=== PATIENT | female | born 1970 | race Caucasian/White ===

== ENCOUNTER → 2016-07-11 | Outpatient (CLI) | payer BC ==
[~2016-07-11] MED LIST: AVIANE PO; IBUP-30 PO; OXYC-12 PO
--- NOTE | 2016-07-11 19:15 | Diagnostic Imaging Report ---
EXAMINATION: Digital mammogram bilateral screening. INDICATION: Screening. COMPARISON: This study was compared to the prior exam of 06/01/2015. At this time, there are no current complaints. The current study was also evaluated with a Computer Aided Detection (CAD) system. FINDINGS: The fibroglandular tissue in both breasts is heterogeneously dense. This does limit the sensitivity of this exam. Overall, there does not appear to have been any significant change when compared to the prior study. No primary or secondary sign of malignancy is noted. IMPRESSION: There is no radiographic evidence for malignancy. ACR BI-RADS Category 1: Negative. Result letter will be mailed to the patient. Note: At least 10% of breast cancer is not imaged by mammography. Dictated by: Dictated on workstation # [id number]
== END ==
LOC: RAD 14:29
PROVIDERS: ATTEND Family Medicine
DX: Z12.31 Encounter for screening mammogram for malignant neoplasm of breast (principal)
CPT/HCPCS: 77067

== ENCOUNTER → 2018-10-15 | Outpatient (CLI) | payer BC ==
--- NOTE | 2018-10-15 18:00 | Diagnostic Imaging Report ---
INDICATION: Routine screening. COMPARISON: Prior mammograms from 07/11/2016 and 06/01/2015. EXAMINATION: 2D and 3D bilateral screening mammography was performed with CAD. The current study was also evaluated with a Computer Aided Detection (CAD) system. FINDINGS: Scattered fibroglandular densities are identified, bilaterally. Intraparenchymal lymph node of outer right breast appears stable. There are benign calcifications in the right breast. No new mass or malignant appearing microcalcifications are seen. Axillae are unremarkable. IMPRESSION: No mammographic features suspicious for malignancy are identified. ACR BI-RADS Category 2: Benign findings. Result letter will be mailed to the patient. Note: At least 10% of breast cancer is not imaged by mammography. Dictated by: Dictated on workstation # [id number]
== END ==
LOC: RAD 14:45
PROVIDERS: ATTEND Family Medicine
DX: Z12.31 Encounter for screening mammogram for malignant neoplasm of breast (principal)
CPT/HCPCS: 77067

== ENCOUNTER → 2020-02-17 | Outpatient (CLI) | payer BC ==
[~2020-02-17] VITALS: Ht 175 cm; Wt 79.0 kg
[~2020-02-17] MED LIST changes: +REGADENOSON 0.4 MG/5 ML SYR (LEXISCAN) IV ONE
[2020-02-17] MEDS: CATHETER FLUSH 10 ML SYR IV PRN ×3 (10:37→12:10)
[2020-02-17 11:59] VITALS: BP 146/99
--- NOTE | 2020-02-17 16:06 | Cardiology Stress Test Report ---
Stress Test Report Date of Procedure/Referring: Date of Procedure: Feb 17, 2020 PCP Chi Melendrez MD Admitting Physician Fatou Alberto MD Indications: Chest pain Baseline Heart Rate: 85 Baseline Blood Pressure: Blood Pressure Systolic: 146 Blood Pressure Diastolic: 99 Baseline Vitals Vital Signs Date Time Temp Pulse Resp B/P (MAP) Pulse Ox O2 Delivery O2 Flow Rate FiO2 02/17/20 11:59 88 16 146/99 (115) 98 Room Air Baseline EKG: Baseline EKG: normal sinus rhythm Summary After explaining the procedure to the patient, she signed a consent and then brought to the stress nuclear laboratory. Patient received 0.4 mg Lexiscan for stress test, ECG, heart rate and blood pressure were monitored continuously. Resting and stress dose of radio tracer were injected, imaging was acquired and reviewed in short axis, horizontal long axis and vertical long axis views. TID: 1.05 SSS: 2 SDS: 2 EF: 75 1. Patient tolerated Lexiscan well 2. Good radiotracer uptake with no significant ischemia or infarction on SPECT images 3. Normal left ventricular size, EF 75 percent CHI MELENDREZ MD Feb 17, 2020 16:06
== END ==
LOC: CARD 10:00
PROVIDERS: ATTEND Internal Medicine Cardiovascular Disease
DX: I34.0 Nonrheumatic mitral (valve) insufficiency (principal); I11.9 Hypertensive heart disease without heart failure
CPT/HCPCS: 78452; 93017; 93306; A9502

== ENCOUNTER → 2021-07-18 | Outpatient (CLI) | payer BC ==
[~2021-07-18] MED LIST changes: +ALBU1.25 INH; +FLUT1AER IH; +LORA-877 PO; +MONT10TA21 PO; +NAPR-1070 PO; +NEBI2.5T5 PO; -REGADENOSON 0.4 MG/5 ML SYR (LEXISCAN) IV ONE
--- NOTE | 2021-07-18 14:15 | Diagnostic Imaging Report ---
INDICATION: Right distal ureteral stone. Time of Exam: 1:13 PM Bowel gas pattern is unremarkable. No definite radiopaque calculi are seen overlying the renal shadows. There are 2 separate calcific densities in the right hemipelvis which are indeterminate. This could represent phleboliths. The more cephalad calcification in the pelvis could potentially be distal ureteric. There is also calcific density projected between the right L1 and L2 transverse processes measuring 10 mm x 5 mm. This is indeterminate. No other suspicious foci are seen. Surgical clips in the gallbladder fossa. IMPRESSION: There are calcific densities in the right hemipelvis as well as located between the right L1 and L2 transverse processes. These could potentially be urinary tract in origin. CT of the urinary tracts would be useful for further evaluation if not already performed. Dictated by: Dictated on workstation # [id number]
== END ==
LOC: RAD 12:54
PROVIDERS: ATTEND Family Medicine
DX: N20.2 Calculus of kidney with calculus of ureter (principal)
CPT/HCPCS: 74018

== ENCOUNTER 2021-07-19 05:43 | Outpatient (CLI) | payer BC ==
[~2021-07-19] VITALS: Ht 175.3 cm; Wt 78.2 kg
[~2021-07-19 05:43] MED LIST changes: -ALBU1.25 INH; -FLUT1AER IH; -LORA-877 PO; -MONT10TA21 PO; -NAPR-1070 PO; -NEBI2.5T5 PO
[2021-07-20] MEDS ORDERED: FLUT1AER IH (15:06)
[2021-07-20] MEDS ORDERED: NAPR-1070 PO (15:06)
[2021-07-20] MEDS ORDERED: LORA-877 PO (15:06)
[2021-07-20] MEDS ORDERED: ALBU1.25 INH (15:06)
[2021-07-20] MEDS ORDERED: NEBI2.5T5 PO (15:06)
[2021-07-20] MEDS ORDERED: MONT10TA21 PO (15:06)
== END 2021-07-20 15:20 | disposition home or self-care (01) ==
LOC: PREOP 05:43
PROVIDERS: ATTEND Urology
DX: Z01.818 Encounter for other preprocedural examination (principal)

== ENCOUNTER 2021-07-25 05:55 | Day surgery (SDC) | payer BC ==
[2021-07-25] VITALS (10 sets, daily range): BP systolic 108–145; BP diastolic 61–89
[~2021-07-25] VITALS: Ht 175.3 cm; Wt 78.2 kg
[~2021-07-25 05:55] MED LIST changes: +ALBU1.25 INH; +FLUT1AER IH; +LORA-877 PO; +MONT10TA21 PO; +NAPR-1070 PO; +NEBI2.5T5 PO
[2021-07-25] MEDS ORDERED: LACTATED RINGERS 1,000 ML IV PRN (06:15)
[2021-07-25] MEDS ORDERED: cefTRIAXone 1 GM PRE-MIX 50 ML IV ONE (06:15)
[2021-07-25] MEDS ORDERED: ONDANSETRON 4 MG/2 ML (SDV) Z0FRAN ONE (06:51)
[2021-07-25] MEDS ORDERED: LIDOCAINE PF 2% 5 ML (XYLOCAINE) VIAL ONE (06:51)
[2021-07-25] MEDS ORDERED: proPOfol 200 MG/20 ML (DIPRIVAN) VIAL IV ONE (06:51)
[2021-07-25] MEDS ORDERED: MIDAZOLAM 2 MG/2 ML (VERSED) VIAL ONE (06:51)
[2021-07-25] MEDS ORDERED: fentaNYL INJ 100 MCG/2 ML AMP ONE (06:51)
--- NOTE | 2021-07-25 07:12 | Diagnostic Imaging Report ---
INDICATION: Post ESWL. COMPARISON: 07/18/2021. FINDINGS: No radiopaque calculi projecting over the renal shadows found. Chronic bony proliferations along the margins of the iliac bones chronic. Bowel gas pattern normal. Right pelvic calcifications unchanged. IMPRESSION: No interval change apparent. Dictated by: Dictated on workstation # [id number]
--- NOTE | 2021-07-25 07:44 | Progress Note-Pre Operative ---
Pre-Operative Progress Note H&P Reviewed The H&P was reviewed, patient examined and no changes noted. Date Seen by Provider: Jul 25, 2021 Time Seen by Provider: 07:44 Date H&P Reviewed: Jul 25, 2021 Time H&P Reviewed: 07:44 Pre-Operative Diagnosis: RT URETERAL STONE FARHANA HERMAN MD Jul 25, 2021 07:44
--- NOTE | 2021-07-25 08:45 | Progress Note-Post Operative ---
Post-Operative Progess Note Surgeon (s)/Operations Officer Afloat (s) Surgeon FARHANA HERMAN MD Operations Officer Afloat: NONE Pre-Operative Diagnosis RT URETERAL STONE Post-Operative Diagnosis SAME Procedure & Operative Findings Date of Procedure 07/25/21 Procedure Performed/Findings CYSTOSCOPY, RT URETEROSCOPY WITH STONE LITHOTRIPSY Anesthesia Type GENERAL Estimated Blood Loss Estimated blood loss (mL): NONE Specimens/Packing Specimens Removed NONE Packing: NONE FARHANA HERMAN MD Jul 25, 2021 08:45
--- NOTE | 2021-07-25 08:47 | Discharge Inst-Urology ---
Discharge Inst-Urology Reconcile Patient Problems Problems Reviewed?: Yes Final Diagnosis RT DISTAL URETERAL STONE Patient Instructions/Follow Up Plan/Assessment/Instructions Please make appointment to been seen in office in 2 weeks. Strain all urine and bring fragments to office visit No KUB's Increase oral fluids for 48 hours and then as needed. Diet and Activity as tolerated. If questions or concerns contact your physician Or seek help at emergency department. FARHANA HERMAN MD Jul 25, 2021 08:47
--- NOTE | 2021-07-25 08:49 | Anesthesia-General Post-Op ---
General Patient Condition Mental Status/LOC: Same as Preop Cardiovascular: Satisfactory Nausea/Vomiting: Absent Respiratory: Satisfactory Pain: Controlled Complications: Absent Post Op Complications Complications None Follow Up Care/Instructions Patient Instructions None needed. Anesthesia/Patient Condition Patient Condition Patient is doing well, no complaints, stable vital signs, no apparent adverse anesthesia problems. No complications reported per nursing. RITESH DAVIS CRNA Jul 25, 2021 08:49
[2021-07-25] MEDS ORDERED: fentaNYL INJ 100 MCG/2 ML AMP IVP ONE (09:00)
[2021-07-25] MEDS ORDERED: ONDANSETRON 4 MG/2 ML (SDV) Z0FRAN IVP PRN (09:00)
[2021-07-25] MEDS ORDERED: NITR-65 PO (09:23)
[2021-07-25] MEDS ORDERED: TMSL.4C PO (09:23)
[2021-07-25] MEDS ORDERED: KETO10TA PO (09:23)
[2021-07-25] MEDS ORDERED: PHEN-640 PO (09:23)
--- NOTE | 2021-07-25 10:49 | OPERATIVE REPORT ---
DATE OF SERVICE: 07/25/2021 PREOPERATIVE DIAGNOSIS: Right distal ureteral stone. POSTOPERATIVE DIAGNOSIS: Right distal ureteral stone. OPERATIONS PERFORMED: Cystoscopy, right ureteroscopy with stone lithotripsy. SURGEON: Pedrito Herman MD. ANESTHESIA: General. COMPLICATIONS: None. DESCRIPTION OF PROCEDURE: Under satisfactory general anesthesia and the patient in lithotomy position, genitalia were prepped and draped in the usual sterile fashion. A cystoscope was introduced in the bladder and the only abnormality was a protruding stone from the right ureteral orifice. I tried to grasp it with a grasping forceps, only obtained a piece, so I removed the cystoscope and introduced the ureteroscope, 6.9 Bengali semi-rigid, visualized the stone and started fragmenting it with the lithoclast. I chased it all up to the mid ureter and broke it up completely. There were no further stones more proximally and very small fragments distally that were easily flowing into the bladder. I removed the ureteroscope and reinserted the cystoscope to empty the bladder. The patient tolerated the procedure and anesthesia well and was sent to recovery room in a stable condition. PLAN: Work her up for stone prevention when she comes to the office in two weeks. Job ID: [id number] DocumentID: [id number] Dictated Date: 07/25/2021 08:49:[address] Date: 07/25/2021 10:48:22 Dictated By: PEDRITO HERMAN MD
== END 2021-07-25 10:45 | disposition home or self-care (01) ==
LOC: SDC 05:55
PROVIDERS: ATTEND Urology
DX: N20.1 Calculus of ureter (principal); J45.909 Unspecified asthma, uncomplicated; I10 Essential (primary) hypertension; Z79.899 Other long term (current) drug therapy
CPT/HCPCS: 74018; 76000; 84703; 87081

== ENCOUNTER 2021-08-16 09:00 | Outpatient (RCR) | payer BC ==
[~2021-08-16 09:00] MED LIST changes: +KETO10TA PO; +NITR-65 PO; +PHEN-640 PO; +TMSL.4C PO
== END 2021-09-05 | disposition home or self-care (01) ==
LOC: LAB 09:00
PROVIDERS: ATTEND Urology
DX: N20.0 Calculus of kidney (principal)
CPT/HCPCS: 36415; 82140; 82340; 82507; 82570; 83735; 83945; 83986; 84105; 84133; 84300; 84392; 84560; 88300

== ENCOUNTER 2021-12-06 05:32 | Outpatient (CLI) | payer BC ==
[~2021-12-06] VITALS: Ht 175.3 cm; Wt 78.5 kg
[2021-12-06] MEDS ORDERED: DICY20TA PO (09:17)
[2021-12-06] MEDS ORDERED: POTA99CA PO (09:17)
[2021-12-06] MEDS ORDERED: FEBU40TA3 PO (09:17)
[2021-12-06] MEDS ORDERED: IBUP-1773 PO (09:17)
== END 2021-12-06 11:51 | disposition home or self-care (01) ==
LOC: PREOP 05:32
PROVIDERS: ATTEND Internal Medicine
DX: Z01.818 Encounter for other preprocedural examination (principal)

== ENCOUNTER 2021-12-15 07:02 | Day surgery (SDC) | payer BC ==
--- NOTE | 2021-12-06 07:40 | HISTORY AND PHYSICAL ---
DATE OF SERVICE: COLONOSCOPY HISTORY AND PHYSICAL HISTORY OF PRESENT ILLNESS: The patient is a 51-year-old white female referred by Dr. Dorman for screening colonoscopy. She is deemed to be of higher than average risk due to family history of colon cancer in her father diagnosed at the age of 61. She also had a grandmother on her father's side who of colon cancer in her 60s. She last underwent colonoscopy 6.5 years ago, at which time there was no evidence for neoplasia. She is now on inhaler therapy following reactive airway disease following a COVID infection little over a year ago. She has some traumatic arthritis that she takes an ibuprofen for daily, has a history of gout and is on Febuxostat 40 mg daily and takes Claritin-D daily, Breo Ellipta one inhalation daily, Singulair 10 mg daily, potassium citrate b.i.d. for kidney stone year ago following COVID infection and p.r.n. albuterol inhaler as well as dicyclomine 20 mg as needed for cramping abdominal pain. She denies bright red blood per rectum or melena. PAST SURGICAL HISTORY: She had cholecystectomy in 03/2013. 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 REVIEW OF SYSTEMS: CONSTITUTIONAL: Denies night sweats, chills, fever or change in weight. PULMONARY: Denies cough and on inhaler therapy. No wheezing or shortness of breath. CARDIOVASCULAR: She reports no orthopnea, PND, pedal edema or dyspnea on exertion. GASTROINTESTINAL: As noted in the HPI. PHYSICAL EXAMINATION: GENERAL: Reveals a white female, appears to be in no acute distress. HEENT: Unremarkable. VITAL SIGNS: Blood pressure 130/94, weight 173. CHEST: Clear to auscultation. CARDIOVASCULAR: Reveals regular rate and rhythm without murmur, S3 or S4. ABDOMEN: Soft, supple without mass, organomegaly or tenderness. EXTREMITIES: Reveal no cyanosis, clubbing or edema. ASSESSMENT AND PLAN: The patient is being set up for screening colonoscopy, deemed to be of higher than average risk due to family history of colon cancer in her father diagnosed at the age of 61 and one grandparent diagnosed in the 60s as well. Prep instructions were given, questions were answered, and electronic medical record was reviewed. I thank you for the referral of this pleasant lady. Job ID: [id number] DocumentID: [id number] Dictated Date: 11/15/2021 16:13:00 Social Security Assessor Date: 11/15/2021 17:16:39 Dictated By: SUZIE ASENCIO MD MTDD
[~2021-12-15] VITALS: Ht 175.3 cm; Wt 78.5 kg
[~2021-12-15 07:02] MED LIST changes: +DICY20TA PO; +FEBU40TA3 PO; +IBUP-1773 PO; +POTA99CA PO
[2021-12-15] MEDS ORDERED: LACTATED RINGERS 1,000 ML IV STA (07:08)
[2021-12-15] MEDS ORDERED: PROPOFOL INJECTION 0 ML IV ONE (07:18)
[2021-12-15] MEDS ORDERED: MIDAZOLAM 2 MG/2 ML (VERSED) VIAL ONE (07:18)
[2021-12-15 07:20] VITALS: BP 134/82
--- NOTE | 2021-12-15 07:42 | Pre-Op Note & Conscious Sedat ---
Pre-Operative Progress Note Date H&P Reviewed: Dec 15, 2021 Time H&P Reviewed: 07:41 History & Physical: H&P Reviewed, Patient Examed, No changes noted Pre-Op Diagnosis: screening Conscious Sedation Pre-Proced ASA Score 1 For ASA 3 and 4: Consider anesthesia and medical clearance. Also, for patients with a history of failed moderate sedation consider anesthesia. Airway Lungs Heart ASA score ASA 1: a normal healthy patient ASA 2: a patient with a mild systemic disease (mid diabetes, controlled hypertension, obesity ASA 3: a patient with a severe systemic disease that limits activity (angina, COPD, prior Myocardial infarction) ASA 4: a patient with an incapacitating disease that is a constant threat to life (CHF, renal failure) ASA 5: a moribund patient not expected to survive 24 hrs. (ruptured aneurysm) ASA 6: a declared brain- patient whose organs are being harvested. For emergent operations, add the letter E after the classification Mallampati Classification Grade 2 Sedation Plan Analgesia, Amnesia, Plan communicated to team members, Discussed options with patient/fam, Discussed risks with patient/fam The patient is an appropriate candidate to undergo the planned procedure, sedation, and anesthesia. The patient immediately re-assessed prior to indication. SUZIE ASENCIO MD Dec 15, 2021 07:42
[2021-12-15] MEDS ORDERED: PROPOFOL INJECTION 50 ML IV ONE (07:58)
--- NOTE | 2021-12-15 08:08 | Progress Note-Post Operative ---
Post-Procedure Note Physician (s)/Research Biologist (s) Physician SUZIE ASENCIO MD Pre-Procedure Diagnosis Pre-Procedure Diagnosis: screening Post-Procedure Diagnosis Post-operative diagnosis: Normal colonoscopy SUZIE ASENCIO MD Dec 15, 2021 08:08
[2021-12-15 08:10] VITALS: BP 117/59
[2021-12-15 08:15] VITALS: BP 113/59
[2021-12-15 08:30] VITALS: BP 123/85
[2021-12-15 08:45] VITALS: BP 123/85
--- NOTE | 2021-12-15 11:32 | Anesthesia-General Post-Op ---
MAC Patient Condition Mental Status/LOC: Same as Preop Cardiovascular: Satisfactory Nausea/Vomiting: Absent Respiratory: Satisfactory Pain: Controlled Complications: Absent Post Op Complications Complications None Follow Up Care/Instructions Patient Instructions None needed. Anesthesiology Discharge Order Discharge Order Patient is doing well, no complaints, stable vital signs, no apparent adverse anesthesia problems. No complications reported per nursing. AZEEM SULLIVAN CRNA Dec 15, 2021 11:32
--- NOTE | 2021-12-15 11:38 | OPERATIVE REPORT ---
DATE OF SERVICE: COLONOSCOPY SUMMARY Screening colonoscopy, family history for colon cancer. DESCRIPTION OF PROCEDURE: The patient was placed in the left lateral decubitus position. Prior to undergoing colonoscopy, digital rectal evaluation was performed. Anal sphincter tone was normal. Perianal reflexes intact. No abnormalities were noted on digital inspection of anal canal or distal rectal vault. The colonoscope was then inserted into the rectum and under direct visualization advanced to the cecum. The cecum was identified by identification of the appendiceal orifice and ileocecal valve. A careful inspection was made as colonoscope was withdrawn. Quality of prep was good. FINDINGS: There was no evidence for internal or external hemorrhoids and the rectum, sigmoid colon, descending colon, splenic flexure, transverse colon, hepatic flexure, ascending colon, and cecum were unremarkable with no evidence for diverticular disease or neoplasia. ASSESSMENT: Normal colonoscopy to cecum. Considering family history, I would advocate consideration for repeat screening colonoscopy in 5 years. I thank you for the referral of this pleasant lady. Job ID: [id number] DocumentID: [id number] Dictated Date: 12/15/2021 08:07:30 [place]ne[place] Person Date: 12/15/2021 11:37:26 Dictated By: SUZIE ASENCIO MD
== END 2021-12-15 08:58 | disposition home or self-care (01) ==
LOC: ENDO 07:02
PROVIDERS: ATTEND Internal Medicine
DX: Z12.11 Encounter for screening for malignant neoplasm of colon (principal); Z80.0 Family history of malignant neoplasm of digestive organs; Z86.16 Personal history of COVID-19; J45.909 Unspecified asthma, uncomplicated; M10.9 Gout, unspecified; Z79.899 Other long term (current) drug therapy; M12.50 Traumatic arthropathy, unspecified site; T14.90XS Injury, unspecified, sequela
CPT/HCPCS: 84703